=== PATIENT | male | born 1985 | race Caucasian/White ===

== ENCOUNTER 2019-06-16 13:15 | Emergency (ER) | payer OTHER ==
--- NOTE | 2019-06-16 13:48 | RAD ---
Study: ANKLE LEFT 3V Indication: Ankle pain. Lateral ankle swelling. Comparison: None. Findings: No acute fracture seen at the left ankle. No traumatic malalignment. The talar dome is intact. The visualized osseous structures of the foot appear intact as well. Soft tissue swelling at the lateral and anterior aspect of the ankle. Plantar calcaneal spur. Spur at the dorsal talar neck as well. Impression: Anterolateral ankle swelling without displaced fracture or traumatic malalignment. Electronically signed by: STEPHY ABARCA MD (06/16/2019 1:46 PM) [id number]
[2019-06-16 14:01] VITALS: BP 143/90
[2019-06-16] MEDS ORDERED: TRAM50TA PO (14:12)
[2019-06-16] MEDS ORDERED: MELO7.5T29 PO (14:12)
--- NOTE | 2019-06-16 14:12 | PHYS DOC ---
Past History Past Medical History: No Pertinent History Past Surgical History: No Surgical History Smoking: Non-smoker Alcohol Use: Occasionally Drug Use: None Adult General Chief Complaint Chief Complaint: ANKLE PROBLEM [facility] Patient is a 34-year-old male presents complaining of left lateral ankle pain. Approximately 1900 yesterday inversion mechanism injury as he was walking in the [place]. He has been able to walk. There is no knee tenderness. No previous injury. No numbness or tingling. No relief with home treatment. Is mild to moderate.[] Review of Systems Review of Systems Constitutional: Denies fever or chills [] Eyes: Denies change in visual acuity, redness, or eye pain [] HENT: Denies nasal congestion or sore throat [] Respiratory: Denies cough or shortness of breath [] Cardiovascular: No additional information not addressed in HPI [] GI: Denies abdominal pain, nausea, vomiting, bloody stools or diarrhea [] : Denies dysuria or hematuria [] Musculoskeletal: Denies back pain, see history of present illness[] Integument: Denies rash or skin lesions [] Neurologic: Denies headache, focal weakness or sensory changes [] Endocrine: Denies polyuria or polydipsia [] All other systems were reviewed and found to be within normal limits, except as documented in this note. Physical Exam Physical Exam Constitutional: Well developed, well nourished, no acute distress, non-toxic appearance. [] HENT: Normocephalic, atraumatic, bilateral external ears normal, oropharynx moist, no oral exudates, nose normal. [] Eyes: PERRLA, EOMI, conjunctiva normal, no discharge. [] Neck: Normal range of motion, no tenderness, supple, no stridor. [] Cardiovascular:Heart rate regular rhythm, no murmur [] Lungs & Thorax: Bilateral breath sounds clear to auscultation [] Abdomen: Not examined. [] Skin: Warm, dry, no erythema, no rash. [] Back: No tenderness, no CVA tenderness. [] Extremities: Left ankle has tenderness and swelling over the lateral malleolus. No base of the fifth metatarsal tenderness to palpation. No knee tenderness. No laxity. Patient is distally neurovascularly intact. The other 3 external rotation: No tenderness, no cyanosis, no clubbing, ROM intact, no edema. [] Neurologic: Alert and oriented X 3, normal motor function, normal sensory function, no focal deficits noted. [] Psychologic: Affect normal, judgement normal, mood normal. [] EKG EKG [] Radiology/Procedures Radiology/Procedures PROCEDURE: ANKLE LEFT 3V Study: ANKLE LEFT 3V Indication: Ankle pain. Lateral ankle swelling. Comparison: None. Findings: No acute fracture seen at the left ankle. No traumatic malalignment. The talar dome is intact. The visualized osseous structures of the foot appear intact as well. Soft tissue swelling at the lateral and anterior aspect of the ankle. Plantar calcaneal spur. Spur at the dorsal talar neck as well. Impression: Anterolateral ankle swelling without displaced fracture or traumatic malalignment.[] Course & Med Decision Making Course & Med Decision Making Pertinent Labs and Imaging studies reviewed. (See chart for details) ED course: Patient arrived, was placed in bed, and tolerated exam well. He was transported to and from radiology with any complications. After the return of the imaging findings, these were discussed with the patient who voiced understanding. An air splint was placed. Patient was distally neurovascularly intact after splint application. He was discharged in improved condition with all questions answered. Medical decision making: There is no evidence of a fracture or dislocation. No evidence of significant ligamentous or tendinous injury. No evidence of neuro or vascular compromise. Dragon Disclaimer Dragon Disclaimer This electronic medical record was generated, in whole or in part, using a voice recognition dictation system. Departure Departure: Impression: Primary Impression: Left ankle sprain Disposition: HOME, SELF-CARE Condition: IMPROVED Referrals: JAMIE JOHNSON DO (PCP) Follow-up in 2 days Patient Instructions: Ankle Sprain, Acute, with Phase I Rehab-SportsMed Additional Instructions: Follow-up with your regular doctor/sick: 2 days. Perform the ankle rehabilitation exercises as indicated. Return to the ER if worsening pain, weakness, or any other concerns. Scripts Tramadol Hcl (TRAMADOL HCL) 50 Mg Tablet 50 MG PO PRN Q6HRS PRN for PAIN, #20 TAB Prov: KACI CAMACHO DO 06/16/19 Meloxicam (MELOXICAM) 7.5 Mg Tablet 7.5 MG PO DAILY for PAIN, #20 TAB Prov: KACI CAMACHO DO 06/16/19 Problem Qualifiers Primary Impression: Left ankle sprain Encounter type: initial encounter Involved ligament of ankle: anterior talofibular ligament Qualified Codes: S93.492A - Sprain of other ligament of left ankle, initial encounter KACI CAMACHO DO Jun 16, 2019 14:12
== END 2019-06-16 14:20 | disposition home or self-care (01) ==
LOC: ER 13:15
DX: S93.492A Sprain of other ligament of left ankle, initial encounter (principal); X50.9XXA Other and unspecified overexertion or strenuous movements or postures, initial encounter; Y93.01 Activity, walking, marching and hiking; Y92.89 Other specified places as the place of occurrence of the external cause; Y99.8 Other external cause status
CPT/HCPCS: 73610; 99284